=== PATIENT | female | born 1955 | race Caucasian/White ===

== ENCOUNTER 2016-08-16 10:51 | Emergency (ER) | payer OTHER ==
[~2016-08-16] VITALS: Ht 172.7 cm; Wt 87.5 kg
[2016-08-16] MEDS ORDERED: ASPIRIN 81 MG TABLET CHEW PO ONE (11:30)
[2016-08-16] MEDS ORDERED: ASPIRIN 81 MG TABLET CHEW ONE (11:30)
[2016-08-16] MEDS ORDERED: LEVO125T5 PO (11:36)
[2016-08-16] MEDS ORDERED: LOSA1TAB16 PO (11:36)
[2016-08-16 12:23] LABS: BLOOD UREA NITROGEN 25 mg/dL (7-18)
[2016-08-16 12:29] LABS: IS PT STATUS REG ER OR PRE ER? YES
[2016-08-16 12:59] VITALS: BP 110/70
== END 2016-08-16 13:08 ==
LOC: ED 12:40
DX: R07.89 Other chest pain (principal); I10 Essential (primary) hypertension; E07.9 Disorder of thyroid, unspecified; Z90.710 Acquired absence of both cervix and uterus
CPT/HCPCS: 36415; 71020; 80048; 82040; 84484; 85025; 93005; 99285

== ENCOUNTER → 2016-11-06 | Outpatient (CLI) | payer OTHER ==
[~2016-11-06] MED LIST: LEVO125T5 PO; LOSA1TAB16 PO
== END | disposition home or self-care (01) ==
LOC: CARD 14:06
PROVIDERS: ATTEND Nurse Practitioner
DX: R05 Cough (principal)
CPT/HCPCS: 94060; 94726; 94729

== ENCOUNTER 2018-12-27 12:24 | Emergency (ER) | payer OTHER ==
[~2018-12-27] VITALS: Ht 172.7 cm; Wt 99.0 kg
[~2018-12-27 12:24] MED LIST changes: -LOSA1TAB16 PO; +LOSA1TAB19 PO
[2018-12-27] MEDS ORDERED: LOSA50TA14 PO (13:00)
[2018-12-27] MEDS ORDERED: MAGN100T6 PO (13:00)
[2018-12-27] MEDS ORDERED: APIX5TAB PO (13:00)
[2018-12-27] MEDS ORDERED: [UNRECOGNIZED DRUG - CODE] PO (13:00)
[2018-12-27] MEDS ORDERED: FLEC100T PO (13:00)
[2018-12-27] MEDS ORDERED: CHOL100012 PO (13:00)
--- NOTE | 2018-12-27 13:03 | NUR ---
PT TO ED FOR FEELING "UNWELL" SINCE FRIDAY. PT DESCRIBES GENERAL FATIGUE AND LEFT SIDED CHEST "SQUEEZING" RAD TO LEFT JAW, LEFT NECK AND LEFT ARM. PT ALSO STATES RECENT HTN AND STATES COMPLIANT WITH MEDICATIONS. PT STATES TODAY STARTED HAVING SHARP RIGHT FLANK PAIN. PT STATES SHE STARTED ATORVASTATIN YESTERDAY. PT STATES HX AFIB, ON ELIQUIS. PT DENIES N/V/D, FEVER, CHILLS, SOB, PALPITATIONS, SWEATING, LIGHTHEADEDNESS AND SYNCOPE. PT CONNECTED TO MONITORS. DEMOND, HTN, ALL OTHER VSS ON RA. NO NEEDS EXPRESSED. CALL LIGHT WITHIN REACH. AWAITING EDMD ASSESSMENT.
[2018-12-27] MEDS ORDERED: ATORVASTATIN (13:04)
[2018-12-27] MEDS ORDERED: NITROGLYCERIN SINGLE TAB 0.4 MG SL PRN (13:30)
[2018-12-27] MEDS ORDERED: NITROGLYCERIN SINGLE TAB 0.4 MG SL ONE (13:34)
--- NOTE | 2018-12-27 13:37 | NUR ---
PT MEDICATED PER MAR. TOLERATED WELL. VSS.
[2018-12-27 13:58] LABS: BASOPHILS # (AUTO) 0.03 x10^3/uL (0-0.1); BASOPHILS % (AUTO) 1 % (0-1); EOSINOPHILS # (AUTO) 0.14 x10^3/uL (0-0.4); EOSINOPHILS % (AUTO) 2 % (1-7); LYMPHOCYTES # (AUTO) 1.43 x10^3/uL (1-3.4); LYMPHOCYTES % (AUTO) 21 % (22-44); MD NO; MEAN CORPUSCULAR HEMOGLOBIN 29.3 pg (27.0-34.8); MEAN CORPUSCULAR VOLUME 88.8 fL (80-100); MEAN PLATELET VOLUME 8.1 fL (7.4-10.4); MONOCYTES # (AUTO) 0.46 x10^3/uL (0.2-0.8); MONOCYTES % (AUTO) 7 % (2-9); NEUTROPHILS # (AUTO) 4.68 x10^3/uL (1.8-6.8); NEUTROPHILS % (AUTO) 69 % (42-75); PLATELET COUNT 278 x10^3/uL (130-400); RED BLOOD COUNT 4.79 x10^6/uL (3.82-5.3); RED CELL DISTRIBUTION WIDTH 15.1 % (9.6-15.2)
[2018-12-27 14:07] LABS: ALBUMIN 3.8 g/dL (3.4-5.0); ANION GAP 4 mmol/L (5-15); CHLORIDE 108 mmol/L (98-107)
[2018-12-27 14:12] LABS: ALANINE AMINOTRANSFERASE 32 U/L (12-78); ALKALINE PHOSPHATASE 113 U/L (45-117); BILIRUBIN,TOTAL 0.8 mg/dL (0.2-1.0); CREATININE 1.02 mg/dL (0.55-1.02); TOTAL PROTEIN 7.7 g/dL (6.4-8.2); TROPONIN I < 0.015 ng/mL (0.000-0.045)
--- NOTE | 2018-12-27 14:18 | NUR ---
PT RESTING IN ROOM. VSS. HTN IMPROVING AFTER NITRO. PT STATES "SQUEEZING" REMAINS IN LEFT CHEST, ARM, NECK AND JAW, BUT EVERYTHING ELSE FEELS "WEIRD." WILL UPDATE EDMD.
--- NOTE | 2018-12-27 15:06 | NUR ---
PT RESTING IN ROOM. VSS. HTN IMPROVING AFTER MEDICATION. PT STATES "SQUEEZING" REMAINS IN LEFT CHEST, ARM, NECK AND JAW, BUT EVERYTHING ELSE FEELS "WEIRD." WILL UPDATE EDMD.
[2018-12-27 15:58] VITALS: BP 144/76
--- NOTE | 2018-12-27 16:00 | NUR ---
AFTER DISCUSSING WITH , PT WOULD LIKE TO DC. DR. LLOYD NOTIFIED. PT DRESSING NOW.
== END 2018-12-27 16:32 | disposition home or self-care (01) ==
LOC: ED 14:36
DX: R07.89 Other chest pain (principal); I10 Essential (primary) hypertension; Z90.710 Acquired absence of both cervix and uterus
CPT/HCPCS: 36415; 71045; 80053; 83735; 83880; 84443; 84484; 85025; 93005; 99284